=== PATIENT | female | born 1985 | race Two or more races ===

== ENCOUNTER 2021-11-23 21:52 | Emergency (ER) | payer OTHER, SELFPAY ==
[2021-11-23 21:59] VITALS: BP 121/70; PULSE 70; O2SAT 99
[2021-11-23 22:06] VITALS: BP 102/55; PULSE 63; RESP 20; TEMP 36.8; O2SAT 98; BMI 24.8
--- NOTE | 2021-11-23 22:19 | ED.BACK ---
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 and felt her back go into spasms on the left side) Timing: progressively worsening Severity: severe Similar Symptoms Previously: No Quality: spasming Location: lumbar spine and left lower back Radiation: buttocks Exacerbating factors: movement Relieving factors: immobilization Context: bending Associated symptoms: denies other symptoms Work related injury: No Related Data Previous Rx's Medication Instructions Recorded diazepam 5 mg tablet (Valium) 5 mg PO TID PRN #10 tab 11/23/21 ibuprofen 600 mg tablet 600 mg PO Q6H PRN #30 tab 11/23/21 lidocaine 4 % topical patch 1 patch TOPICAL DAILY PRN #10 ea 11/23/21 Allergies Allergy/AdvReac Type Severity Reaction Status Date / Time Iodinated Contrast Media Allergy Severe RESP Verified 11/23/21 22:05 [CONTRAST, IV] DISTRESS, STOP BREATHING methocarbamol [From ROBAXIN] Allergy Severe FACIAL Verified 11/23/21 22:05 SWELLING citalopram [CITALOPRAM] Allergy Intermediate BRUISING Verified 11/23/21 22:05 Review of Systems Review of Systems: Constitutional : No Weight loss, No Fever, No Chills, ENT/Mouth : No Hearing loss, No Ear Pain, No Nasal Congestion, No Sinus Pain, No Hoarseness, No sore throat, No Rhinorrhea, No Swallowing Difficulty Cardiovascular : No Chest Pain, No SOB Respiratory : No Cough, No Dyspnea Gastrointestinal : No Nausea, No Vomiting, No Diarrhea, No abdominal Pain, No Hematochezia, No Melena Genitourinary : No Dysuria, No Urinary Frequency, No Hematuria, No Urinary Incontinence, Musculoskeletal : positive back pain Skin : No Skin Lesions, No rash Neuro : No Weakness, No Numbness, No Paresthesias, no loss of bowel or bladder incontinence, no saddle anesthesia PMF Past Medical History Attestation statement: The following information was validated with the patient. Medical History No pertinent past medical history Social History Social History (Updated 11/23/21 @ 23:06 by Ruthie Francis DO) Patient Tobacco Use Status: Never used Tobacco Use of substances other than those prescribed or required for medical reasons: No Advance Directives: No Patient : No Physical Exam Vital Signs: Vital Signs: Last Vital Signs Temp 98.3 F 11/23/21 22:06 Pulse 63 11/23/21 22:06 Resp 20 11/23/21 22:06 BP 102/55 L 11/23/21 22:06 Pulse Ox 98 11/23/21 22:06 BMI result Body Mass Index 24.8 Appearance: Alert. Oriented X3. No acute distress. Eyes: Pupils equal, round and reactive to light. ENT: Pharynx normal. Neck: Normal inspection. Neck supple. CVS: Normal heart rate and rhythm. Pulses normal. Respiratory: No respiratory distress. Breath sounds normal. Abdomen: Soft and nontender. Back: spasms and pain in left lower back distal NV intact Skin: Skin warm and dry. Normal skin color. Normal skin turgor. Extremities: No lower extremity edema. No calf ttp Neuro: Oriented X 3. No motor deficit. No sensory deficit. SILT inner thigh MDM - Back Pain/Injury MDM Narrative Medical decision making narrative: 36 yo female with back spasms after bending she is NV intact no b/b incontinence, no saddle anesthesia, no IVDA< no AC therapy - no red flags at this time will attempt analgesia and valium for pain control. Dispo per results and findings. Discharge Plan Discharge Clinical Impression: Back muscle spasm Patient Disposition: Home, Self-Care Instructions: Muscle Spasm (ED), Back Pain (ED) Additional Instructions: return to ED for any worsening symptoms or concerns do not just lay in bed try to move around please Prescriptions: New lidocaine 4 % adhesive patch,medicated 1 patch topical DAILY PRN (Reason: pain) Qty: 10 0RF Rx Instructions: may leave on for up to 12 hrs ibuprofen 600 mg tablet 600 mg PO Q6H PRN (Reason: pain) Qty: 30 0RF diazepam [Valium] 5 mg tablet 5 mg PO TID PRN (Reason: muscle spasm) Qty: 10 0RF Referrals: Physician,Unknown J [Primary Care Provider] - 2 days (PCP if not better) Stand Alone Forms: Work/School Release
[2021-11-23] MEDS: diazePAM 5 MG TABLET PO (22:39)
[2021-11-23] MEDS: Ketorolac Tromethamine 60 MG/2 ML VIAL IM (22:39)
[2021-11-23] MEDS: Lidocaine 4 % Patch ADH..PATCH 1 PATCH TRANSDERMA (22:40)
== END 2021-11-24 00:09 | disposition home or self-care (01) ==
PROVIDERS: Emergency Provider Emergency Medicine
DX: M62.830 Muscle spasm of back (principal)
CPT/HCPCS: 96372; 99283; 99284; J1885

== ENCOUNTER 2023-06-01 01:01 | Emergency (ER) | payer OTHER, SELFPAY ==
[2023-06-01 01:13] VITALS: BP 105/60; PULSE 73; RESP 18; TEMP 36.9; O2SAT 98; BMI 26.5
--- NOTE | 2023-06-01 01:34 | ED_ITS ---
HPI - Back Pain/Injury General Chief Complaint: Back Pain/Injury Stated Complaint: Back Pain Time Seen by Provider: 06/01/23 01:33 Source: patient Mode of arrival: ambulatory Limitations: no limitations History of Present Illness HPI Narrative: Patient with history of chronic back pain for last 2 years often get worse today while at work patient noted increased pain no recent fall no bladder or bowel incontinence . pain radiates to the left leg no paresthesia no motor weakness Related Data Previous Rx's Medication Instructions Recorded diazepam 5 mg tablet (Valium) 5 mg PO TID PRN muscle spasm #10 11/23/21 tabs ibuprofen 600 mg tablet 600 mg PO Q6H PRN pain #30 tabs 11/23/21 lidocaine 4 % topical patch 1 patch topical DAILY PRN pain #10 11/23/21 ea cyclobenzaprine 10 mg tablet 10 mg PO Q8H #20 tabs 06/01/23 tramadol 50 mg tablet 50 mg PO Q6H PRN pain #20 tabs 06/01/23 Allergies Allergy/AdvReac Type Severity Reaction Status Date / Time Iodinated Contrast Media Allergy Severe RESP Verified 11/23/21 22:05 [CONTRAST, IV] DISTRESS, STOP BREATHING methocarbamol [From ROBAXIN] Allergy Severe FACIAL Verified 11/23/21 22:05 SWELLING citalopram [CITALOPRAM] Allergy Intermediate BRUISING Verified 11/23/21 22:05 Review of Systems Review of Systems: Yes all other systems are reviewed and are negative [facility] Past Medical History Medical History No pertinent past medical history Social History Social History Patient Tobacco Use Status: Never used Tobacco Physical Exam Vital Signs: Vital Signs: Last Vital Signs Temp 98.4 F 06/01/23 01:13 Pulse 73 06/01/23 01:13 Resp 18 06/01/23 01:13 BP 105/60 06/01/23 01:13 Pulse Ox 98 06/01/23 01:13 O2 Del Method Room Air 06/01/23 01:13 BMI result Body Mass Index 26.5 Appearance: Alert. Oriented X3. No acute distress. ENT: Pharynx normal. Oral Mucosa moist Neck: Normal inspection. Neck supple. CVS: Normal heart rate and rhythm. Pulses normal. Respiratory: No respiratory distress. Equal air entry bilateral, no wheezing/rales/rhonchi Abdomen: Soft and nontender. Bowel sounds are present, no mass palpable, no CVA tenderness Skin: Skin warm and dry. Normal skin color. Normal skin turgor. Extremities: No lower extremity edema. No calf tenderness Back: Diffuse lumbar tenderness. More on the left side SLR negative on the right positive the left side Neuro: Oriented X 3. No motor deficit. No sensory deficit.No cerebellar signs , cranial nerves II-XII intact Medical Decision Making Medical Decision Making [facility] Narrative: Patient left sciatic as in the past with discharge patient home analgesics and muscle relaxants no recent trauma Differential Diagnosis Differential Diagnoses: The differential diagnosis associated with the presentation includes Sciatica/arthritis Discharge Plan Discharge Clinical Impression: Sciatica Patient Disposition: Home, Self-Care Instructions: Sciatica (ED) Additional Instructions: Take pain medication and muscle relaxant as prescribed Follow with PCP Prescriptions: New cyclobenzaprine 10 mg tablet 10 mg PO Q8H Qty: 20 0RF tramadol 50 mg tablet 50 mg PO Q6H PRN (Reason: pain) Qty: 20 0RF No Action lidocaine 4 % adhesive patch,medicated 1 patch topical DAILY PRN (Reason: pain) Qty: 10 0RF Rx Instructions: may leave on for up to 12 hrs ibuprofen 600 mg tablet 600 mg PO Q6H PRN (Reason: pain) Qty: 30 0RF diazepam [Valium] 5 mg tablet 5 mg PO TID PRN (Reason: muscle spasm) Qty: 10 0RF
[2023-06-01] MEDS: traMADoL HCL 50 MG TABLET PO (02:01)
[2023-06-01] MEDS: dexAMETHasone 2 MG TABLET 10 MG PO (02:01)
[2023-06-01] MEDS: Cyclobenzaprine HCl 10 MG TABLET PO (02:02)
== END 2023-06-01 02:07 | disposition home or self-care (01) ==
PROVIDERS: Emergency Provider Internal Medicine; PCP Internal Medicine
DX: M54.30 Sciatica, unspecified side (principal); M54.9 Dorsalgia, unspecified; Z79.899 Other long term (current) drug therapy
CPT/HCPCS: 99283; J8540

== ENCOUNTER 2024-02-21 15:57 | Emergency (ER) | payer OTHER, SELFPAY ==
--- NOTE | ~2024-02-21 | CT_ITS ---
EXAMINATION: CT HEAD WITHOUT CONTRAST (STROKE PROTOCOL) CLINICAL INFORMATION: Stroke protocol. Word finding difficulty. Rule out stroke. COMPARISON: None available. TECHNIQUE: Contiguous axial imaging was performed from the skull base to vertex without intravenous administration of contrast. This CT examination was performed using dose optimization techniques as appropriate, variously including the following: *Automated exposure control *Adjustment of mA and/or kV according to patient size (this includes techniques or standardized protocols for targeted exams where dose is matched to indication/reason for exam; i.e. extremities or head) *Use of iterative reconstruction technique DLP: 629 mGy-cm FINDINGS: There is no evidence for an extra-axial collection. There is no evidence for intra-or extra-axial hemorrhage. The ventricles and extra-axial CSF spaces are appropriate. Kumar-white matter differentiation is normal. No mass, mass effect or infarct is seen. Review of bone windows is normal. No skull fracture. Visualized sinuses mastoid air cells and middle ears are clear. CT/CT head for stroke IMPRESSION: Unremarkable exam. This critical result was discussed with Dr. Dubose at 1616 hours on 02/21/2024. It was ascertained that the content and urgency of the report was understood at the time of direct communication.
--- NOTE | 2024-02-21 15:59 | ECG_ITS ---
Test Reason : STROKE ALERT Blood Pressure : / mmHG Vent. Rate : 076 BPM Atrial Rate : 076 BPM P-R Int : 136 ms QRS Dur : 074 ms QT Int : 394 ms P-R-T Axes : 038 020 043 degrees QTc Int : 443 ms Normal sinus rhythm Normal ECG No previous ECGs available Referred By: Milton Carranza Electronically Signed By:CHAVA CARVALHO MD
--- NOTE | 2024-02-21 16:00 | ED.GENADULT ---
HPI - General Adult General Chief complaint: Stroke Stated complaint: Fast ED of 4, slurred speech, LKWT 30 mins prior Time Seen by Provider: 02/21/24 16:05 Source: patient and EMS Mode of arrival: EMS Limitations: no limitations History of Present Illness ED Provider: Goldie SU HPI narrative: This is a 38-year-old female history of epilepsy presents with complaints of slurred speech, difficulty with word finding, overall feeling unwell times 30 minutes patient reports she awoke from a nap with these symptoms. She reports this has never happened to her before. She tries to speak however her speech is interrupted. No history of this in the past. Patient is not on blood thinners. Does not feel like this is her typical seizure. Denies recent illness, headache, vision changes, trauma, cp, sob, nausea, vomiting NIHSS-4 Fast ED score of 4 Related Data Previous Rx's ?Medication ?Instructions ?Recorded diazepam 5 mg tablet (Valium) 5 mg PO TID PRN muscle spasm #10 11/23/21 tabs ibuprofen 600 mg tablet 600 mg PO Q6H PRN pain #30 tabs 11/23/21 lidocaine 4 % topical patch 1 patch topical DAILY PRN pain #10 11/23/21 ea cyclobenzaprine 10 mg tablet 10 mg PO Q8H #20 tabs 06/01/23 tramadol 50 mg tablet 50 mg PO Q6H PRN pain #20 tabs 06/01/23 clonazepam 1 mg tablet (Klonopin) 1 mg PO BEDTIME PRN anxiety/sleep 02/21/24 #20 tabs Allergies Allergy/AdvReac Type Severity Reaction Status Date / Time Iodinated Contrast Media Allergy Severe RESP Verified 02/21/24 16:08 [CONTRAST, IV] DISTRESS, STOP BREATHING methocarbamol [From ROBAXIN] Allergy Severe FACIAL Verified 02/21/24 16:08 SWELLING citalopram [CITALOPRAM] Allergy Intermediate BRUISING Verified 02/21/24 16:08 Review of Systems Review of Systems: Yes all other systems are reviewed and are negative PMFSH Past Medical History Medical History No pertinent past medical history Social History Social History Alcohol intake: current Patient Tobacco Use Status: Never used Tobacco Smoked in Last 30 Days: No Use of substances other than those prescribed or required for medical reasons: Yes Substance Use Type: Marijuana Advance Directives: No Advance Directives Information Provided: No Do you have a plan to hurt others: No Plan Patient : No Physical Exam ED Vital Signs: Vital Signs - 24 hr 02/21/24 16:01 02/21/24 18:24 Temperature 98.2 F Pulse Rate 66 60 Respiratory Rate 16 13 Blood Pressure 112/60 98/64 Pulse Oximetry 98 98 Oxygen Delivery Method Room Air Room Air BMI result Body Mass Index 26.2 Course Reevaluation(s) Reevaluation #1: Sign out to Dr. Patton Time: 16:09 Medications Administered Discontinued Medications Generic Name Dose Route Start Last Admin Trade Name Freq PRN Reason Stop Dose Admin Midazolam HCl 2 mg 02/21/24 16:12 02/21/24 16:17 Midazolam Hcl/Pf 2 Mg/2 Ml Vial IVPUSH 02/21/24 16:13 2 mg ONCE ONE Administration Medical Decision Making Medical Decision Making [facility] Narrative: 1559 38 year old female presents with difficulty with word finding, slurred speech times 30 minutes started after taking a nap. Physical exam dysarthria noted. Slight drooping of the left side of the face. No weakness appreciated to upper lower extremities. History and physical exam concerning for epilepsy/postictal vs axiety ( most likely) versus stroke. Unlikely meningitis, encephalitis. Will rule out metabolic derangements. Plan labs, imaging, urine. NIH Stroke Scale/Score (NIHSS) from [email or web address] on 02/21/2024 All calculations should be rechecked by clinician prior to use RESULT SUMMARY: 4 points NIH Stroke Scale INPUTS: 1A: Level of consciousness ?> 0 = Alert; keenly responsive 1B: Ask month and age ?> 0 = Both questions right 1C: 'Blink eyes' & 'squeeze hands' ?> 0 = Performs both tasks 2: Horizontal extraocular movements ?> 0 = Normal 3: Visual funes ?> 0 = No visual loss 4: Facial palsy ?> 1 = Minor paralysis (flat nasolabial fold, smile asymmetry) 5A: Left arm motor drift ?> 0 = No drift for 10 seconds 5B: Right arm motor drift ?> 0 = No drift for 10 seconds 6A: Left leg motor drift ?> 0 = No drift for 5 seconds 6B: Right leg motor drift ?> 0 = No drift for 5 seconds 7: Limb Ataxia ?> 0 = No ataxia 8: Sensation ?> 0 = Normal; no sensory loss 9: Language/aphasia ?> 2 = Severe aphasia: fragmentary expression, inference needed, cannot identify materials 10: Dysarthria ?> 1 = Mild-moderate dysarthria: slurring but can be understood 11: Extinction/inattention ?> 0 = No abnormality Patient seen and re-evaluated does have a history of stress-induced seizures and panic attacks not on any antiepileptic medication patient was normal in the morning went to sleep woke up at 15:00 incontinent in the bed and slurring her words with good articulation and comprehension without any deficits patient had full detail workup done for stroke which was negative symptoms improved after Versed 2 mg patient is back to no ambulatory in the ED and taking p.o. fluids clinically patient had panic attacks possible stress-induced seizure will discharge patient home advised to follow with PCP Fernando for increased anxiety Differential Diagnosis Differential Diagnoses: The differential diagnosis associated with the presentation includes (History and physical exam concerning for epilepsy/postictal vs axiety ( most likely) versus stroke. Unlikely meningitis, encephalitis. Will rule out metabolic derangements.) Admission/Observation Consideration of admission/observation: Escalation of care including admission/observation considered Unlikely Lab Data MDM Lab Attestation statement: I reviewed the patient's lab results. 02/21/24 16:25 02/21/24 16:25 Labs: Lab Results 02/21/24 02/21/24 02/21/24 Range/Units 15:59 16:25 16:25 WBC 7.7 (4.8-10.8) X10*3/uL RBC 4.27 (4.20-5.50) X10*6/uL Hgb 13.8 (12.0-16.0) g/dl Hct 39.6 (37.0-47.0) % MCV 92.7 (80.0-98.0) fL MCH 32.3 (27.0-33.0) pg MCHC 34.8 (31.0-35.0) g/dl RDW 12.3 (11.0-16.0) % Plt Count 308 (160-400) X10*3/uL MPV 10.4 (9.4-12.3) fL Immature Gran % (Auto) 0.1 (0.0-0.4) % Neut % (Auto) 70.7 (45-73) % Lymph % (Auto) 20.5 (20-40) % [place] % (Auto) 5.7 (2-11) % Eos % (Auto) 2.2 (0-4) % Baso % (Auto) 0.8 (0-2) % Lymph # (Auto) 1.6 (1.2-4.9) X10*3/uL [place] # (Auto) 0.4 (0.1-1.2) X10*3/uL Eos # (Auto) 0.2 (0.0-0.4) X10*3/uL Baso # (Auto) 0.1 (0.0-0.2) X10*3/uL Abs Immat Gran (auto) 0.01 (0.00-0.03) X10*3/uL Absolute Neuts (auto) 5.4 (2.0-8.3) x10*3/uL Absolute Nucleated RBC 0.000 (0.0-0.012) X10*3/uL Nucleated RBC % (auto) 0.0 (0.0-0.2) /100WBC PT 11.8 (11.1-13.3) SEC Whole Blood PT 12.9 (11.1-13.5) sec INR 1.0 (0.9-1.1) Whole Blood INR 1.1 (0.9-1.1) APTT 30.8 (26.0-36.8) SEC Sodium 137 (135-145) mmol/L Potassium 4.3 (3.3-5.1) mmol/L Chloride 108 (96-108) mmol/L Carbon Dioxide 23 (22-29) mmol/L Anion Gap 10 L (12-20) BUN 7 L (9-16) mg/dL Creatinine 0.79 (0.5-1.4) mg/dL Estim Creat Clear Calc 84.5 Estimated GFR > 60 POC Glucose 113 (60-115) mg/dL Random Glucose 99 101 (60-115) mg/dL Calcium 9.7 (8.4-10.2) mg/dL Total Creatine Kinase 133 (26-140) U/L Troponin I High Sens < 2.7 (<3.5-17.0) ng/L TSH 0.37 (0.32-4.0) uIU/mL Urine Color Urine Appearance Urine pH (5.0-9.0) Ur Specific [place] (1.005-1.025) Urine Protein (Neg-Trace) mg/dL Urine Glucose (UA) (Negative) mg/dL Urine Ketones (Negative) mg/dL Urine Blood (Negative) Urine Nitrite (Negative) Ur Leukocyte Esterase (Negative) Ethyl Alcohol < 10 mg/dL 02/21/24 Range/Units 17:31 WBC (4.8-10.8) X10*3/uL RBC (4.20-5.50) X10*6/uL Hgb (12.0-16.0) g/dl Hct (37.0-47.0) % MCV (80.0-98.0) fL MCH (27.0-33.0) pg MCHC (31.0-35.0) g/dl RDW (11.0-16.0) % Plt Count (160-400) X10*3/uL MPV (9.4-12.3) fL Immature Gran % (Auto) (0.0-0.4) % Neut % (Auto) (45-73) % Lymph % (Auto) (20-40) % [place] % (Auto) (2-11) % Eos % (Auto) (0-4) % Baso % (Auto) (0-2) % Lymph # (Auto) (1.2-4.9) X10*3/uL [place] # (Auto) (0.1-1.2) X10*3/uL Eos # (Auto) (0.0-0.4) X10*3/uL Baso # (Auto) (0.0-0.2) X10*3/uL Abs Immat Gran (auto) (0.00-0.03) X10*3/uL Absolute Neuts (auto) (2.0-8.3) x10*3/uL Absolute Nucleated RBC (0.0-0.012) X10*3/uL Nucleated RBC % (auto) (0.0-0.2) /100WBC PT (11.1-13.3) SEC Whole Blood PT (11.1-13.5) sec INR (0.9-1.1) Whole Blood INR (0.9-1.1) APTT (26.0-36.8) SEC Sodium (135-145) mmol/L Potassium (3.3-5.1) mmol/L Chloride (96-108) mmol/L Carbon Dioxide (22-29) mmol/L Anion Gap (12-20) BUN (9-16) mg/dL Creatinine (0.5-1.4) mg/dL Estim Creat Clear Calc Estimated GFR POC Glucose (60-115) mg/dL Random Glucose (60-115) mg/dL Calcium (8.4-10.2) mg/dL Total Creatine Kinase (26-140) U/L Troponin I High Sens (<3.5-17.0) ng/L TSH (0.32-4.0) uIU/mL Urine Color Yellow Urine Appearance Clear Urine pH 7.5 (5.0-9.0) Ur Specific [place] <= 1.005 (1.005-1.025) Urine Protein Negative (Neg-Trace) mg/dL Urine Glucose (UA) Negative (Negative) mg/dL Urine Ketones Trace (Negative) mg/dL Urine Blood Negative (Negative) Urine Nitrite Negative (Negative) Ur Leukocyte Esterase Negative (Negative) Ethyl Alcohol mg/dL Independent Interpretation I performed an independent interpretation of an: CT Scan Radiology Impression Discussion of test interpretation with radiology: I have reviewed the radiologist's reading. Critical Care Time Critical Care Time Critical Care Time: Yes Total Critical Care Time: 35 Attestation: I attest to this time spent taking care of the patient, obtaining history, physical, reviewing labs, imaging, speaking to my attending, specialist or hospitalist. Discharge Plan Discharge Clinical Impression: Slurring of speech Patient Disposition: Home, Self-Care Instructions: Panic Attack (ED) Additional Instructions: Rest at home Likely had a panic attack/stress-induced seizure Take your medication for anxiety as advised Follow with therapist Prescriptions: New clonazepam [Klonopin] 1 mg tablet 1 mg PO BEDTIME PRN (Reason: anxiety/sleep) Qty: 20 0RF Rx Instructions: administer 30 minutes before bedtime No Action lidocaine 4 % adhesive patch,medicated 1 patch topical DAILY PRN (Reason: pain) Qty: 10 0RF Rx Instructions: may leave on for up to 12 hrs ibuprofen 600 mg tablet 600 mg PO Q6H PRN (Reason: pain) Qty: 30 0RF diazepam [Valium] 5 mg tablet 5 mg PO TID PRN (Reason: muscle spasm) Qty: 10 0RF cyclobenzaprine 10 mg tablet 10 mg PO Q8H Qty: 20 0RF tramadol 50 mg tablet 50 mg PO Q6H PRN (Reason: pain) Qty: 20 0RF Print Language: Trinidadian
[2024-02-21 16:01] VITALS: BP 112/60; BP 185/80; PULSE 66; PULSE 82; RESP 16; TEMP 36.8; O2SAT 100; O2SAT 98; BMI 26.2
[2024-02-21 16:04] LABS: Prothrombin Time Whole Bld POC 12.9 sec (11.1-13.5); ~PT, ~INR - Anti Coag Clinic 1.1 (0.9-1.1)
[2024-02-21 16:06] LABS: Glucose, Whole Blood 113 mg/dL (60-115)
[2024-02-21] MEDS: Midazolam HCl/PF 2 MG/2 ML VIAL IVPUSH (16:17)
[2024-02-21 16:31] LABS: MANUAL DIFF FLAG NO
[2024-02-21 16:33] LABS: Basophils Absolute Auto 0.1 X10*3/uL (0.0-0.2); Basophils Percent Auto 0.8 % (0-2); Eosinophils Absolute Auto 0.2 X10*3/uL (0.0-0.4); Eosinophils Percent Auto 2.2 % (0-4); Hematocrit 39.6 % (37.0-47.0); Hemoglobin 13.8 g/dl (12.0-16.0); Imm Gran Abs Auto 0.01 X10*3/uL (0.00-0.03); Imm Gran Pct Auto 0.1 % (0.0-0.4); Lymphocytes Absolute Auto 1.6 X10*3/uL (1.2-4.9); Lymphocytes Percent Auto 20.5 % (20-40); Mean Corpuscular HGB Conc 34.8 g/dl (31.0-35.0); Mean Corpuscular Hemoglobin 32.3 pg (27.0-33.0); Mean Corpuscular Volume 92.7 fL (80.0-98.0); Mean Platelet Volume 10.4 fL (9.4-12.3); Monocytes Absolute Auto 0.4 X10*3/uL (0.1-1.2); Monocytes Percent Auto 5.7 % (2-11); Neutrophils Absolute Auto 5.4 x10*3/uL (2.0-8.3); Neutrophils Percent Auto 70.7 % (45-73); Platelet Count 308 X10*3/uL (160-400); Red Blood Count 4.27 X10*6/uL (4.20-5.50); Red Cell Distribution Width 12.3 % (11.0-16.0); White Blood Count 7.7 X10*3/uL (4.8-10.8)
[2024-02-21 16:48] LABS: Glucose Random 101 mg/dL (60-115)
[2024-02-21 16:53] LABS: Prothrombin Time 11.8 SEC (11.1-13.3)
[2024-02-21 16:55] LABS: Partial Thromboplastin Time 30.8 SEC (26.0-36.8)
[2024-02-21 17:04] LABS: Anion Gap 10 (12-20); Blood Urea Nitrogen 7 mg/dL (9-16); Calcium 9.7 mg/dL (8.4-10.2); Carbon Dioxide 23 mmol/L (22-29); Chloride 108 mmol/L (96-108); Creatinine Clr Calc Pharmacy 84.5; Estimated Glomerular Filt Rate > 60; Ethanol < 10 mg/dL; Glucose Random 99 mg/dL (60-115); Potassium 4.3 mmol/L (3.3-5.1); Sodium 137 mmol/L (135-145); Troponin-I High Sensitivity < 2.7 ng/L (<3.5-17.0)
[2024-02-21 17:14] LABS: Thyroid Stimulating Hormone 0.37 uIU/mL (0.32-4.0)
[2024-02-21 17:27] LABS: Stroke Lab Use COMPLETE
[2024-02-21 17:59] LABS: Appearance Urine Clear; Color Urine Yellow; Glucose Urine UA Negative (Negative); Leukocyte Esterase Urine Negative (Negative); Nitrite Urine Negative (Negative); PH 7.5 (5.0-9.0); Specific Gravity - Urine <= 1.005 (1.005-1.025); Urine Blood Negative (Negative); Urine Ketones Trace mg/dL (Negative); Urine Protein Negative (Neg-Trace)
[2024-02-21 18:24] VITALS: BP 98/64; PULSE 60; RESP 13; O2SAT 98
--- NOTE | 2024-02-21 19:18 | PC.NURSE ---
This RN assumed pt care @ 1900. Pt ca&ox4, no signs of distress. Pt resting in bed comfortably, watching TV. Pt denies pain at this time. Family at bedside. Plan of care ongoing.
--- NOTE | 2024-02-21 20:47 | PC.NURSE ---
swallow eval done by provider roddy
[2024-02-21 20:48] VITALS: BP 129/74; PULSE 64; RESP 14; TEMP 36.7; O2SAT 100
== END 2024-02-21 20:50 | disposition home or self-care (01) ==
PROVIDERS: Physician Assistant; Emergency Provider Internal Medicine; PCP Internal Medicine
DX: R47.81 Slurred speech (principal); R47.1 Dysarthria and anarthria; Z79.899 Other long term (current) drug therapy
CPT/HCPCS: 36415; 70450; 80048; 80307; 81003; 82550; 82947; 84443; 84484; 85025; 85610; 85730; 93005; 96374; 99284; 99285; J2250

== ENCOUNTER → 2024-02-21 15:59 | Outpatient (BNV) | payer OTHER, SELFPAY | PROVIDERS: Emergency Provider Internal Medicine; PCP Internal Medicine; Visit Provider Internal Medicine Cardiovascular Disease | DX: R47.81 Slurred speech (principal) | CPT/HCPCS: 93010 ==